=== PATIENT | male | born 1970 | race Caucasian/White ===

== ENCOUNTER 2016-12-18 20:43 | Emergency (ER) | payer OTHER ==
[~2016-12-18] VITALS: Ht 175.3 cm; Wt 73.3 kg
[~2016-12-18 20:43] MED LIST: ANTIVERT12.5 MG PO; CLARITIN-D 121 EACH PO; NO HOME MEDS
[2016-12-18 20:54] VITALS: BP 137/92
== END 2016-12-18 23:05 | disposition left against medical advice (07) ==
LOC: EME 20:43
DX: M25.572 Pain in left ankle and joints of left foot (principal); Z53.21 Procedure and treatment not carried out due to patient leaving prior to being seen by health care provider
CPT/HCPCS: 73610